=== PATIENT | female | born 1985 | race Hispanic/Latino ===

== ENCOUNTER 2018-03-09 16:04 | Emergency (ER) | payer SELFPAY ==
--- NOTE | 2018-03-09 17:35 | EDPHYS ---
Physician Documentation [facility] Name: Yamilet Bustos Age: 32 yrs Sex: Female : 1985 Arrival Date: 03/09/2018 Time: 16:06 Bed 20 Private MD: None, None ED Physician Kb Aguilera HPI: 03/09 17:37 This 32 yrs old Female presents to ER via Ambulatory with complaints of Blood snw Pressure Problem - LOW. 17:37 doing errands today and felt hot, weak, shaky. Took BP at a store and noted it to be snw much lower than she has ever had. Onset: The symptoms/episode began/occurred suddenly, today. Severity of symptoms: At their worst the symptoms were moderate in the emergency department the symptoms have resolved and did so while in waiting room. The patient has not experienced similar symptoms in the past. It is unknown whether or not the patient has recently seen a physician. 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 - Social history:: Smoking status: Patient/guardian denies using tobacco. - Ebola Screening: : Patient denies travel to an Ebola-affected area in the 21 days before illness onset. ROS: 17:32 Eyes: Negative for injury, pain, redness, and discharge, ENT: Negative for injury, snw pain, and discharge, Neck: Negative for injury, pain, and swelling. 17:32 Respiratory: Negative for shortness of breath, cough, wheezing, and pleuritic chest pain, Abdomen/GI: Negative for abdominal pain, nausea, vomiting, diarrhea, and constipation, Back: Negative for injury and pain, : Negative for injury, bleeding, discharge, and swelling, MS/Extremity: Negative for injury and deformity, Neuro: Negative for headache, weakness, numbness, tingling, and seizure. 17:32 Constitutional: Positive for fatigue, malaise. 17:32 Cardiovascular: Positive for low blood pressure. 17:32 Skin: Positive for diaphoresis, resolved. Exam: 17:32 Constitutional: This is a well developed, well nourished patient who is awake, alert, snw and in no acute distress. Head/Face: Normocephalic, atraumatic. Eyes: Pupils equal round and reactive to light, extra-ocular motions intact. Lids and lashes normal. Conjunctiva and sclera are non-icteric and not injected. Cornea within normal limits. Periorbital areas with no swelling, redness, or edema. ENT: Nares patent. No nasal discharge, no septal abnormalities noted. Tympanic membranes are normal and external auditory canals are clear. Oropharynx with no redness, swelling, or masses, exudates, or evidence of obstruction, uvula midline. Mucous membranes moist. Neck: Trachea midline, no thyromegaly or masses palpated, and no cervical lymphadenopathy. Supple, full range of motion without nuchal rigidity, or vertebral point tenderness. No Meningismus. Chest/axilla: Normal chest wall appearance and motion. Nontender with no deformity. No lesions are appreciated. Cardiovascular: Regular rate and rhythm with a normal S1 and S2. No gallops, murmurs, or rubs. Normal PMI, no JVD. No pulse deficits. Respiratory: Lungs have equal breath sounds bilaterally, clear to auscultation and percussion. No rales, rhonchi or wheezes noted. No increased work of breathing, no retractions or nasal flaring. Abdomen/GI: Soft, non-tender, with normal bowel sounds. No distension or tympany. No guarding or rebound. No evidence of tenderness throughout. Back: No spinal tenderness. No costovertebral tenderness. Full range of motion. Skin: Warm, dry with normal turgor. Normal color with no rashes, no lesions, and no evidence of cellulitis. MS/ Extremity: Pulses equal, no cyanosis. Neurovascular intact. Full, normal range of motion. Neuro: Awake and alert, GCS 15, oriented to person, place, time, and situation. Cranial nerves II-XII grossly intact. Motor strength 5/5 in all extremities. Sensory grossly intact. Cerebellar exam normal. Normal gait. Psych: Awake, alert, with orientation to person, place and time. Behavior, mood, and affect are within normal limits. Vital Signs: 16:17 BP 122 / 77 Sitting; Pulse 75; Resp 18; Temp 98.9; Pulse Ox 100% on R/A; Weight 56.7 kg aj1 (R); Height 5 ft. 5 in. (165.10 cm) (R); Pain 0/10; 16:20 BP 135 / 83 Standing; Pulse 80; aj1 17:14 BP 118 / 62; Pulse 58; Resp 15; Pulse Ox 100% on R/A; mh5 17:58 BP 111 / 62; Pulse 64; Resp 15; Temp 98.3; Pulse Ox 99% on R/A; Pain 0/10; ch 16:17 Body Mass Index 20.80 (56.70 kg, 165.10 cm) aj1 MDM: 17:23 Patient medically screened. snw 17:36 Data reviewed: vital signs, nurses notes. Data interpreted: Pulse oximetry: on room air snw is 100 %. Interpretation: normal. Counseling: I had a detailed discussion with the patient and/or guardian regarding: the historical points, exam findings, and any diagnostic results supporting the discharge/admit diagnosis, lab results, the need for outpatient follow up, to return to the emergency department if symptoms worsen or persist or if there are any questions or concerns that arise at home. Special discussion: Based on the history and exam findings, there is no indication for further emergent testing or inpatient evaluation. I discussed with the patient/guardian the need to see the primary care provider for further evaluation of the symptoms. ED course: pt on spironolactone for acne, no hx of hypertension. No fluid intake today as she was running errands. 03/09 17:38 Order name: Urine Dipstick--Ancillary (enter results); Complete Time: 17:41 bd 03/09 17:38 Order name: Urine --Ancillary (enter results); Complete Time: 17:41 bd Administered Medications: No medications were administered Disposition: 03/10 07:19 Co-signature as Attending Physician, Kb Aguilera MD I agree with the assessment and dennis plan of care. Disposition: 03/09/18 17:35 Discharged to Home. Impression: Adverse effect of antihypertensive/diuretic. - Condition is Stable. - Discharge Instructions: Dehydration, Adult, Rehydration, Adult. - Medication Reconciliation Form, Thank You Letter, Antibiotic Education, Prescription Opioid Use form. - Follow up: Private Physician; When: 1 - 2 days; Reason: Recheck today's complaints, Continuance of care, Re-evaluation by your physician. Follow up: Emergency Department; When: As needed; Reason: Worsening of condition. Signatures: Dispatcher [employer] Barbara Covarrubias, Beverley Graves RN, ch, RN RN ajKb Isaac MD MD cha Therrien, Shelly, CONCRETE STONE FABRICATING SUPERVISOR-C CONCRETE STONE FABRICATING SUPERVISOR-Csnw Corrections: (The following items were deleted from the chart) 03/09 18:00 17:35 03/09/2018 17:35 Discharged to Home. Impression: Adverse effect of ch antihypertensive/diuretic. Condition is Stable. Forms are Medication Reconciliation Form, Thank You Letter, Antibiotic Education, Prescription Opioid Use. Follow up: Private Physician; When: 1 - 2 days; Reason: Recheck today's complaints, Continuance of care, Re-evaluation by your physician. Follow up: Emergency Department; When: As needed; Reason: Worsening of condition. snw
--- NOTE | 2018-03-09 17:35 | ER ---
Nurse's Notes [facility] Name: Yamilet Bustos Age: 32 yrs Sex: Female : 1985 Arrival Date: 03/09/2018 Time: 16:06 Bed 20 Private MD: None, None Diagnosis: Adverse effect of antihypertensive/diuretic Presentation: 03/09 16:13 Presenting complaint: Patient states: She was running errands when all the sudden she aj1 felt really weak and tired so she stopped and checked her blood pressure in the local [employer] store and it was 89/66. Denies dizziness and chest pain. Reports shortness of breath. Breath sounds CTA. Transition of care: patient was not received from another setting of care. Onset of symptoms was March 09, 2018. Risk Assessment: Do you want to hurt yourself or someone else? Patient reports no desire to harm self or others. Initial Sepsis Screen: Does the patient meet any 2 criteria? No. Patient's initial sepsis screen is negative. Does the patient have a suspected source of infection? No. Patient's initial sepsis screen is negative. Care prior to arrival: None. 16:13 Method Of Arrival: Ambulatory aj1 16:13 Acuity: BRYCE 3 aj1 Triage Assessment: 16:17 General: Appears in no apparent distress. comfortable, Behavior is calm, cooperative, aj1 appropriate for age. Pain: Denies pain. Neuro: Level of Consciousness is awake, alert, obeys commands. Cardiovascular: Patient's skin is warm and dry. Respiratory: Reports shortness of breath Airway is patent Respiratory effort is even, unlabored, Respiratory pattern is regular, symmetrical, Breath sounds are clear bilaterally. the patient reports symptoms have resolved. Derm: Skin is pink, warm \T\ dry. normal. 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 - Social history:: Smoking status: Patient/guardian denies using tobacco. - Ebola Screening: : Patient denies travel to an Ebola-affected area in the 21 days before illness onset. Screenin:58 Abuse screen: Denies threats or abuse. Denies injuries from another. Nutritional ch screening: No deficits noted. Tuberculosis screening: No symptoms or risk factors identified. Fall Risk None identified. Assessment: 17:20 General: Appears in no apparent distress. comfortable, Behavior is calm, cooperative, ch appropriate for age. Pain: Denies pain. Neuro: No deficits noted. Cardiovascular: No deficits noted. Respiratory: No deficits noted. GI: No signs and/or symptoms were reported involving the gastrointestinal system. Derm: No signs and/or symptoms reported regarding the dermatologic system. 17:58 Reassessment: Patient appears in no apparent distress at this time. Patient and/or ch family updated on plan of care and expected duration. Pain level reassessed. Patient is alert, oriented x 3, equal unlabored respirations, skin warm/dry/pink. Patient denies pain at this time. Patient states feeling better. Patient states symptoms have improved. Vital Signs: 16:17 BP 122 / 77 Sitting; Pulse 75; Resp 18; Temp 98.9; Pulse Ox 100% on R/A; Weight 56.7 kg aj1 (R); Height 5 ft. 5 in. (165.10 cm) (R); Pain 0/10; 16:20 BP 135 / 83 Standing; Pulse 80; aj1 17:14 BP 118 / 62; Pulse 58; Resp 15; Pulse Ox 100% on R/A; mh5 17:58 BP 111 / 62; Pulse 64; Resp 15; Temp 98.3; Pulse Ox 99% on R/A; Pain 0/10; ch 16:17 Body Mass Index 20.80 (56.70 kg, 165.10 cm) aj1 ED Course: 16:06 Patient arrived in ED. sb2 16:06 None, None is Private Physician. sb2 16:17 Triage completed. aj1 17:12 Barbara Galeas, RN is Primary Nurse. ch 17:14 Patient has correct armband on for positive identification. Placed in gown. Bed in low mh5 position. Call light in reach. Warm blanket given. Pulse ox on. NIBP on. 17:21 Kathy Thompson FNP-C is PHCP. snw 17:21 Kb Aguilera MD is Attending Physician. snw 17:35 Patient has correct armband on for positive identification. Placed in gown. Bed in low mh5 position. Call light in reach. Warm blanket given. Pulse ox on. NIBP on. 17:35 EKG done. Urine collected: clean catch specimen, clear. 5 17:58 No apparent distress. Resting quietly. ch 17:58 No provider procedures requiring assistance completed. Patient did not have IV access ch during this emergency room visit. 17:59 Patient placed in an exam room, on a stretcher. Administered Medications: No medications were administered Outcome: 17:35 Discharge ordered by . snw 17:58 Discharged to home ambulatory, with family. 17:58 Condition: improved 17:58 Discharge instructions given to patient, family, Instructed on discharge instructions, follow up and referral plans. Demonstrated understanding of instructions, follow-up care. 18:00 Patient left the ED. Signatures: Barbara Galeas RN RN Beverley Galeano RN RN aj1 Kathy Thompson, INDUSTRY SEGMENT SPECIALIST-C INDUSTRY SEGMENT SPECIALIST-Carly Nolen 5 Beryl Falk sb2 Corrections: (The following items were deleted from the chart) 16:19 16:17 BP 122 / 77; Pulse 75bpm; Resp 18bpm; Pulse Ox 100% RA; Temp 98.9F; 56.7 kg aj1 Reported; Height 5 ft. 5 in. Reported; BMI: 20.8; Pain 0/10; aj1
[2018-03-09 17:39] LABS: Urine Blood 2+ (NEG); Urine Glucose NEGATIVE (NEG); Urine Protein NEGATIVE (NEG)
== END 2018-03-09 18:00 | disposition home or self-care (01) ==
LOC: ER 16:04
DX: I95.9 Hypotension, unspecified (principal); T50.2X5A Adverse effect of carbonic-anhydrase inhibitors, benzothiadiazides and other diuretics, initial encounter; Y92.9 Unspecified place or not applicable; Z88.1 Allergy status to other antibiotic agents
CPT/HCPCS: 81003; 81025; 99284

== ENCOUNTER 2018-12-29 19:47 | Emergency (ER) | payer SELFPAY ==
[2018-12-29] MEDS ORDERED: CYCLOBENZAPRINE 10 MG TAB ONE (21:04)
[2018-12-29] MEDS ORDERED: IBUPROFEN 400 MG TAB ONE (21:05)
[2018-12-29 21:07] LABS: Urine Blood 2+ (NEG); Urine Glucose NEGATIVE (NEG); Urine Protein NEGATIVE (NEG); Urine pH 5.5 (5.0-7.0)
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
--- NOTE | 2018-12-30 11:30 | RAD REPORT ---
EXAM DESCRIPTION: CT - Head Brain Wo Cont - 12/30/2018 4:25 am CLINICAL HISTORY: Trauma. COMPARISON: None. TECHNIQUE: CT scan of the brain and facial bones without IV contrast. This exam was performed accord ing to our departmental dose-optimization program, which includes automated exposure control, adjustm ent of the mA and/or kV according to patient size and/or use of iterative reconstruction technique. FINDINGS: BRAIN: The ventricles, cisterns, and sulci are age-appropriate. No evidence of acute infarction, intracrania l hemorrhage, extra-axial fluid collection, or midline shift. No depressed skull fracture. FACIAL BONES: No acute facial bone fracture is seen. No air-fluid levels are seen in the paranasal sinuses. The mas toid air cells are clear. No retrobulbar mass or hematoma is identified. IMPRESSION: 1. No acute intracranial hemorrhage. 2. No acute facial bone fracture. Electronically signed by: Andrea Loza MD 12/29/2018 9:34 PM CDT Due to temporary technical issues with the PACS/Fluency reporting system, reports are being signed by the in house radiologist as a courtesy to ensure prompt reporting. The interpreting radiologist is f ully responsible for the content of the report.
--- NOTE | 2018-12-30 11:33 | RAD REPORT ---
EXAM DESCRIPTION: CT - Facial Bones W/ Mpr - 12/30/2018 4:25 am CLINICAL HISTORY: Trauma. COMPARISON: None. TECHNIQUE: CT scan of the brain and facial bones without IV contrast. This exam was performed accord ing to our departmental dose-optimization program, which includes automated exposure control, adjustm ent of the mA and/or kV according to patient size and/or use of iterative reconstruction technique. FINDINGS: BRAIN: The ventricles, cisterns, and sulci are age-appropriate. No evidence of acute infarction, intracrania l hemorrhage, extra-axial fluid collection, or midline shift. No depressed skull fracture. FACIAL BONES: No acute facial bone fracture is seen. No air-fluid levels are seen in the paranasal sinuses. The mas toid air cells are clear. No retrobulbar mass or hematoma is identified. IMPRESSION: 1. No acute intracranial hemorrhage. 2. No acute facial bone fracture. Electronically signed by: Andrea Loza MD 12/29/2018 9:34 PM CDT Due to temporary technical issues with the PACS/Fluency reporting system, reports are being signed by the in house radiologist as a courtesy to ensure prompt reporting. The interpreting radiologist is f ully responsible for the content of the report.
== END 2018-12-29 22:40 | disposition home or self-care (01) ==
LOC: ER 19:47
DX: S00.83XA Contusion of other part of head, initial encounter (principal); V49.9XXA Car occupant (driver) (passenger) injured in unspecified traffic accident, initial encounter; Z88.1 Allergy status to other antibiotic agents
CPT/HCPCS: 70450; 70486; 76377; 81003; 81025; 99283

== ENCOUNTER 2020-06-18 18:05 | Emergency (ER) | payer SELFPAY ==
--- NOTE | 2020-06-18 20:40 | ER ---
Nurse's Notes [facility] Name: Yamilet Bustos Age: 35 yrs Sex: Female : 1985 Arrival Date: 06/18/2020 Time: 18:06 Bed 18 Private MD: Diagnosis: Cat-scratch disease Presentation: 06/18 18:32 Chief complaint: Patient states: My L groin is hurting since last week. I originally ca1 think it was a pulled muscle from working out, but , it started getting worse, swollen, and tender. I also have a little bit of a fever. Denies urinary symptoms. Coronavirus screen: Client denies travel out of the [place] in the last 14 days. fever, Client presents with at least one sign or symptom that may indicate coronavirus-19. Standard/surgical mask placed on the client. Provider contacted for isolation considerations. Ebola Screen: Patient negative for fever greater than or equal to 101.5 degrees Fahrenheit, and additional compatible Ebola Virus Disease symptoms Patient denies exposure to infectious person. Patient denies travel to an Ebola-affected area in the 21 days before illness onset. No symptoms or risks identified at this time. Initial Sepsis Screen: Does the patient meet any 2 criteria? No. Patient's initial sepsis screen is negative. Does the patient have a suspected source of infection? No. Patient's initial sepsis screen is negative. Risk Assessment: Do you want to hurt yourself or someone else? Patient reports no desire to harm self or others. Onset of symptoms was June 18, 2020. 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 - Social history:: Smoking status: Patient denies any tobacco usage or history of. Screenin:15 Abuse screen: Denies threats or abuse. Denies injuries from another. Nutritional ca1 screening: No deficits noted. Tuberculosis screening: No symptoms or risk factors identified. Fall Risk None identified. Assessment: 20:15 General: Appears in no apparent distress. comfortable, Behavior is calm, cooperative, ca1 appropriate for age. Pain: Complains of pain in left inguinal area and left femoral area Pain currently is 6 out of 10 on a pain scale. Pain began a week ago. Neuro: Level of Consciousness is awake, alert, obeys commands, Oriented to person, place, time, situation. GI: Abdomen is flat, non-distended, Bowel sounds present X 4 quads. Abd is soft and non tender X 4 quads. : No signs and/or symptoms were reported regarding the genitourinary system. Urine is clear, Denies burning with urination, urinary frequency, urgency. Derm: Skin is intact, is healthy with good turgor, Skin is pink, warm \T\ dry. Musculoskeletal: Circulation, motion, and sensation intact. Capillary refill < 3 seconds. 21:16 Reassessment: Patient appears in no apparent distress at this time. Patient is alert, ca1 oriented x 3, equal unlabored respirations, skin warm/dry/pink. Vital Signs: 18:32 BP 128 / 89; Pulse 77; Resp 16 S; Temp 97.9(TE); Pulse Ox 100% on R/A; Weight 58.97 kg ca1 (R); Height 5 ft. 5 in. (165.10 cm) (R); Pain 6/10; 20:15 BP 121 / 82; Pulse 71; Resp 16 S; Pulse Ox 100% on R/A; ca1 21:16 BP 118 / 78; Pulse 76; Resp 16 S; Pulse Ox 100% on R/A; ca1 18:32 Body Mass Index 21.63 (58.97 kg, 165.10 cm) ca1 ED Course: 18:06 Patient arrived in ED. as 18:35 Triage completed. ca1 18:36 Arm band placed on right wrist. ca1 19:14 Kathy Tai FNP-C is PHCP. snw 19:14 Vu Carty MD is Attending Physician. snw 20:15 Patient has correct armband on for positive identification. Bed in low position. Call ca1 light in reach. Side rails up X 1. Pulse ox on. NIBP on. 20:20 Kinjal Urban, ABEL is Primary Nurse. ca1 20:40 US Pelvis Complete In Process Unspecified. EDMS 20:51 No provider procedures requiring assistance completed. Patient did not have IV access ca1 during this emergency room visit. Administered Medications: 20:40 Drug: TORadol 30 mg Route: IM; Site: right gluteus; ca1 21:16 Follow up: Response: No adverse reaction; Pain is decreased ca1 20:41 Drug: Zithromax 500 mg Route: PO; ca1 21:16 Follow up: Response: No adverse reaction ca1 Outcome: 20:40 Discharge ordered by MD. lou 21:16 Discharged to home ambulatory. ca1 21:16 Condition: stable 21:16 Discharge instructions given to patient, Instructed on discharge instructions, follow up and referral plans. medication usage, Demonstrated understanding of instructions, follow-up care, medications, Prescriptions given X 2. 21:16 Patient left the ED. ca1 Signatures: Dispatcher [employer] EDMS Kathy Tai, DIRECTOR HARDWARE-C DIRECTOR HARDWARE-Anju Noeln Cheryl RN RN ca1
--- NOTE | 2020-06-18 20:40 | EDPHYS ---
Physician Documentation [facility] Name: Yamilet Bustos Age: 35 yrs Sex: Female : 1985 Arrival Date: 06/18/2020 Time: 18:06 Bed 18 Private MD: ED Physician Vu Carty HPI: 06/18 20:22 This 35 yrs old Female presents to ER via Ambulatory with complaints of Groin snw Pain. 20:22 Onset: The symptoms/episode began/occurred suddenly, 3 day(s) ago, and became snw persistent. Associated signs and symptoms: Pertinent positives: swelling, tenderness. Modifying factors: The patient symptoms are alleviated by Motrin. The patient has not experienced similar symptoms in the past. The patient has not recently seen a physician. 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 - Social history:: Smoking status: Patient denies any tobacco usage or history of. ROS: 20:21 Constitutional: Negative for fever, chills, and weight loss, Eyes: Negative for injury, snw pain, redness, and discharge, ENT: Negative for injury, pain, and discharge, Neck: Negative for injury, pain, and swelling, Cardiovascular: Negative for chest pain, palpitations, and edema, Respiratory: Negative for shortness of breath, cough, wheezing, and pleuritic chest pain, Abdomen/GI: Negative for abdominal pain, nausea, vomiting, diarrhea, and constipation, Back: Negative for injury and pain, MS/Extremity: Negative for injury and deformity, Skin: Negative for injury, rash, and discoloration, Neuro: Negative for headache, weakness, numbness, tingling, and seizure, Psych: Negative for depression, anxiety, suicide ideation, homicidal ideation, and hallucinations. 20:21 : Positive for pelvic pain, of the left femoral area and left inguinal area. Exam: 20:19 Constitutional: This is a well developed, well nourished patient who is awake, alert, snw and in no acute distress. Head/Face: Normocephalic, atraumatic. Eyes: Pupils equal round and reactive to light, extra-ocular motions intact. Lids and lashes normal. Conjunctiva and sclera are non-icteric and not injected. Cornea within normal limits. Periorbital areas with no swelling, redness, or edema. ENT: Nares patent. No nasal discharge, no septal abnormalities noted. Tympanic membranes are normal and external auditory canals are clear. Oropharynx with no redness, swelling, or masses, exudates, or evidence of obstruction, uvula midline. Mucous membranes moist. Neck: Trachea midline, no thyromegaly or masses palpated, and no cervical lymphadenopathy. Supple, full range of motion without nuchal rigidity, or vertebral point tenderness. No Meningismus. Chest/axilla: Normal chest wall appearance and motion. Nontender with no deformity. No lesions are appreciated. Cardiovascular: Regular rate and rhythm with a normal S1 and S2. No gallops, murmurs, or rubs. Normal PMI, no JVD. No pulse deficits. Respiratory: Lungs have equal breath sounds bilaterally, clear to auscultation and percussion. No rales, rhonchi or wheezes noted. No increased work of breathing, no retractions or nasal flaring. Abdomen/GI: Soft, non-tender, with normal bowel sounds. No distension or tympany. No guarding or rebound. No evidence of tenderness throughout. Back: No spinal tenderness. No costovertebral tenderness. Full range of motion. Pelvic Exam: Normal external genitalia. Left groin tender along iliopsoas but pt has no difficulty with hip flexion. Tender to palpation from left mid abdomen down to left central thigh Skin: Warm, dry with normal turgor. Normal color with no rashes, no lesions, and no evidence of cellulitis. MS/ Extremity: Pulses equal, no cyanosis. Neurovascular intact. Full, normal range of motion. Neuro: Awake and alert, GCS 15, oriented to person, place, time, and situation. Cranial nerves II-XII grossly intact. Motor strength 5/5 in all extremities. Sensory grossly intact. Cerebellar exam normal. Normal gait. Psych: Awake, alert, with orientation to person, place and time. Behavior, mood, and affect are within normal limits. Vital Signs: 18:32 BP 128 / 89; Pulse 77; Resp 16 S; Temp 97.9(TE); Pulse Ox 100% on R/A; Weight 58.97 kg ca1 (R); Height 5 ft. 5 in. (165.10 cm) (R); Pain 6/10; 20:15 BP 121 / 82; Pulse 71; Resp 16 S; Pulse Ox 100% on R/A; ca1 21:16 BP 118 / 78; Pulse 76; Resp 16 S; Pulse Ox 100% on R/A; ca1 18:32 Body Mass Index 21.63 (58.97 kg, 165.10 cm) ca1 MDM: 20:19 Patient medically screened. snw 20:42 Data reviewed: vital signs, nurses notes. Data interpreted: Pulse oximetry: on room air snw is 100 %. Interpretation: normal. Counseling: I had a detailed discussion with the patient and/or guardian regarding: the historical points, exam findings, and any diagnostic results supporting the discharge/admit diagnosis, the presence of at least one elevated blood pressure reading (>120/80) during this emergency department visit, the need for outpatient follow up, for definitive care, to return to the emergency department if symptoms worsen or persist or if there are any questions or concerns that arise at home. Special discussion: Based on the history and exam findings, there is no indication for further emergent testing or inpatient evaluation. I discussed with the patient/guardian the need to see the primary care provider for further evaluation of the symptoms. 06/18 19:25 Order name: US Merrill Complete snw Administered Medications: 20:40 Drug: TORadol 30 mg Route: IM; Site: right gluteus; ca1 21:16 Follow up: Response: No adverse reaction; Pain is decreased ca1 20:41 Drug: Zithromax 500 mg Route: PO; ca1 21:16 Follow up: Response: No adverse reaction ca1 Disposition: 06/19 01:10 Co-signature as Attending Physician, Vu Carty MD. pkl Disposition: 06/18/20 20:40 Discharged to Home. Impression: Cat-scratch disease. - Condition is Stable. - Discharge Instructions: Cat-Scratch Disease, Rehydration, Adult. - Prescriptions for Diclofenac Sodium 75 mg Oral Tablet Sustained Release - take 1 tablet by ORAL route 2 times per day; 30 tablet. Zithromax 500 mg Oral Tablet - take 1 tablet by ORAL route once daily for 5 days; 5 tablet. - Medication Reconciliation Form, Thank You Letter, Antibiotic Education, Prescription Opioid Use, Work release form form. - Follow up: Emergency Department; When: As needed; Reason: Worsening of condition. Follow up: Private Physician; When: 5 - 6 days; Reason: Recheck today's complaints, Continuance of care, Re-evaluation by your physician. Signatures: Dispatcher [employer] EDMS Vu Carty MD MD pkl Waters, Shelly, HARSHAD-C HARSHAD-Kinjal Gee RN RN ca1 Corrections: (The following items were deleted from the chart) 06/18 21:16 20:40 06/18/2020 20:40 Discharged to Home. Impression: Cat-scratch disease. Condition ca1 is Stable. Forms are Medication Reconciliation Form, Thank You Letter, Antibiotic Education, Prescription Opioid Use. Follow up: Emergency Department; When: As needed; Reason: Worsening of condition. Follow up: Private Physician; When: 5 - 6 days; Reason: Recheck today's complaints, Continuance of care, Re-evaluation by your physician. snw
[2020-06-18] MEDS ORDERED: AZITHROMYCIN 250 MG TAB ONE (20:59)
[2020-06-18] MEDS ORDERED: KETOROLAC 30 MG/ML INJ ONE (20:59)
[2020-06-19 03:04] VITALS: TEMP 97.9; O2SAT 100
[2020-06-19 03:08] VITALS: BP 118/78
--- NOTE | 2020-06-19 07:07 | RAD REPORT ---
EXAM DESCRIPTION: US - Pelvis Complete - 06/18/2020 8:39 pm CLINICAL HISTORY: left groin pain COMPARISON: No comparisons TECHNIQUE: Transabdominal pelvic sonography was performed. FINDINGS: Transabdominal sonography the pelvis and left inguinal region performed. Uterus is normal size and shows no endometrial or myometrial mass. Endometrial stripe is approximately 6 mm in thickne ss. Both ovaries are identified and normal size. Normal for age follicles are seen. Blood flow was demons trated in the ovarian stroma. No suspicious ovarian or adnexal finding. Sonographic evaluation of the left groin did not identify a hernia. Patient has multiple lymph nodes in the groin largest at 3.5 cm in length. Lymph nodes are not clearly pathologic. These lymph nodes a re typically reactive but need monitoring based on size. Preliminary findings were provided at the time of the study. IMPRESSION: Uterus, ovaries and adnexa show no suspicious findings. Multiple left groin lymph nodes up to 3.5 cm in length. These are likely reactive but needs ongoing m onitoring to assure resolution. No left groin hernia identified.
== END 2020-06-18 21:16 | disposition home or self-care (01) ==
LOC: ER 18:05
DX: A28.1 Cat-scratch disease (principal); Z88.1 Allergy status to other antibiotic agents
CPT/HCPCS: 76856; 96372; 99284

== ENCOUNTER 2020-07-21 21:08 | Emergency (ER) | payer SELFPAY ==
--- NOTE | 2020-07-21 22:58 | EDPHYS ---
Physician Documentation [facility] Name: Yamilet Bustos Age: 35 yrs Sex: Female : 1985 Arrival Date: 07/21/2020 Time: 21:19 Bed 5 Private MD: ED Physician Deyvi Desir HPI: 07/21 22:26 This 35 yrs old Female presents to ER via Ambulatory with complaints of Wound kb Check. 22:26 Pt reports she had a cat scratch to left groin a month ago, was seen here and given kb antibiotics. States she has had a lump in that spot since then so she came back to get it looked at. States the lump doesn't cause pain or any other symptoms unless she pushes on it. States pushing on it causes a bruise. 22:36 the patient presents with a swollen area of the left femoral area. Description: kb swollen. Onset: The symptoms/episode began/occurred 1 month(s) ago. Possible cause(s): cat scratch. Associated signs and symptoms: Pertinent positives: swelling, Pertinent negatives: discharge, drainage, erythema, foreign body sensation, fever, headache, nausea, shortness of breath, vomiting. Modifying factors: the symptoms are alleviated by nothing, the symptoms are aggravated by pressure. Severity of symptoms: At their worst the symptoms were mild, in the emergency department the symptoms are unchanged. The patient has not experienced similar symptoms in the past. The patient has been recently seen at the [facility] Emergency Department, last month. Historical: - Allergies: 21:44 Bactrim; rr5 - Home Meds: 21:44 spironolactone 50 mg Oral tab 1 tab once daily for ACNE [Active]; diclofenac oral oral rr5 [Active]; - PMHx: 21:44 ACNE; rr5 - PSHx: 21:44 None; rr5 - Immunization history:: Adult Immunizations up to date. - Social history:: Smoking status: unknown Patient/guardian denies using alcohol, street drugs. ROS: 22:35 Constitutional: Negative for fever, chills, and weight loss, Cardiovascular: Negative kb for chest pain, palpitations, and edema, Respiratory: Negative for shortness of breath, cough, wheezing, and pleuritic chest pain, Abdomen/GI: Negative for abdominal pain, nausea, vomiting, diarrhea, and constipation, MS/Extremity: Negative for injury and deformity, Neuro: Negative for headache, weakness, numbness, tingling, and seizure. 22:35 Skin: Positive for "lump" to left groin area. Exam: 22:35 Constitutional: This is a well developed, well nourished patient who is awake, alert, kb and in no acute distress. Head/Face: Normocephalic, atraumatic. Chest/axilla: Normal chest wall appearance and motion. Nontender with no deformity. No lesions are appreciated. Cardiovascular: Regular rate and rhythm with a normal S1 and S2. No gallops, murmurs, or rubs. Normal PMI, no JVD. No pulse deficits. Respiratory: Lungs have equal breath sounds bilaterally, clear to auscultation and percussion. No rales, rhonchi or wheezes noted. No increased work of breathing, no retractions or nasal flaring. Abdomen/GI: Soft, non-tender, with normal bowel sounds. No distension or tympany. No guarding or rebound. No evidence of tenderness throughout. MS/ Extremity: Pulses equal, no cyanosis. Neurovascular intact. Full, normal range of motion. Neuro: Awake and alert, GCS 15, oriented to person, place, time, and situation. Cranial nerves II-XII grossly intact. Motor strength 5/5 in all extremities. Sensory grossly intact. Cerebellar exam normal. Normal gait. 22:35 Skin: walnut sized mass to left groin area, no redness, fluctuance, drainage, warmth, tenderness. Vital Signs: 21:38 BP 140 / 96; Pulse 91; Resp 16; Temp 98.; Pulse Ox 100% ; Weight 58.97 kg; Height 5 ft. rr5 5 in. (165.10 cm); Pain 4/10; 21:38 Body Mass Index 21.63 (58.97 kg, 165.10 cm) rr5 MDM: 21:50 Patient medically screened. kb 22:35 Data reviewed: vital signs, nurses notes. Data interpreted: Pulse oximetry: on room air kb is 100 %. Interpretation: normal. Counseling: I had a detailed discussion with the patient and/or guardian regarding: the historical points, exam findings, and any diagnostic results supporting the discharge/admit diagnosis, radiology results, the need for outpatient follow up, a family practitioner, to return to the emergency department if symptoms worsen or persist or if there are any questions or concerns that arise at home. 07/21 21:46 Order name: US Porfirio ellis Administered Medications: No medications were administered Disposition: 07/22 05:29 Co-signature as Attending Physician, Deyvi Desir MD. [email or web address] Disposition: 07/21/20 22:57 Discharged to Home. Impression: Hematoma. - Condition is Stable. - Discharge Instructions: Hematoma, [id number]. - Medication Reconciliation Form, Thank You Letter, Antibiotic Education, Prescription Opioid Use form. - Follow up: Emergency Department; When: As needed; Reason: Worsening of condition. Follow up: Private Physician; When: 2 - 3 days; Reason: Recheck today's complaints, Continuance of care, Re-evaluation by your physician. Signatures: Dispatcher [employer] EDMA Samantha Dias, BURTC Jaclyn Amaro RN RN lp1 Brennon Nava RN RN rr5 Deyvi Desir MD MD 7 Corrections: (The following items were deleted from the chart) 07/21 23:20 22:57 07/21/2020 22:57 Discharged to Home. Impression: Hematoma. Condition is Stable. lp1 Forms are Medication Reconciliation Form, Thank You Letter, Antibiotic Education, Prescription Opioid Use. Follow up: Emergency Department; When: As needed; Reason: Worsening of condition. Follow up: Private Physician; When: 2 - 3 days; Reason: Recheck today's complaints, Continuance of care, Re-evaluation by your physician. kb
--- NOTE | 2020-07-21 22:58 | ER ---
Nurse's Notes [facility] Name: Yamilet Bustos Age: 35 yrs Sex: Female : 1985 Arrival Date: 07/21/2020 Time: 21:19 Bed 5 Private MD: Diagnosis: Hematoma Presentation: 07/21 21:38 Chief complaint: Patient states: lump on left groin area when i press it hurts and rr5 develops bruise. it started as a cat scratch a month a go came here prescribed antibiotic and anti inflammatory medication. no fever. Coronavirus screen: Client denies travel out of the [place] in the last 14 days. At this time, the client does not indicate any symptoms associated with coronavirus-19. Ebola Screen: Patient negative for fever greater than or equal to 101.5 degrees Fahrenheit, and additional compatible Ebola Virus Disease symptoms Patient denies exposure to infectious person. Patient denies travel to an Ebola-affected area in the 21 days before illness onset. Initial Sepsis Screen: Does the patient meet any 2 criteria? No. Patient's initial sepsis screen is negative. Does the patient have a suspected source of infection? No. Patient's initial sepsis screen is negative. Risk Assessment: Do you want to hurt yourself or someone else? Patient reports no desire to harm self or others. Onset of symptoms was July 21, 2020. 21:38 Method Of Arrival: Ambulatory rr5 21:38 Acuity: BRYCE 4 rr5 Historical: - Allergies: 21:44 Bactrim; rr5 - Home Meds: 21:44 spironolactone 50 mg Oral tab 1 tab once daily for ACNE [Active]; diclofenac oral oral rr5 [Active]; - PMHx: 21:44 ACNE; rr5 - PSHx: 21:44 None; rr5 - Immunization history:: Adult Immunizations up to date. - Social history:: Smoking status: unknown Patient/guardian denies using alcohol, street drugs. Screenin:02 Abuse screen: Denies threats or abuse. Nutritional screening: No deficits noted. ea Tuberculosis screening: No symptoms or risk factors identified. Fall Risk None identified. Assessment: 21:54 Reassessment: refused to change hospital gown. rr5 22:00 General: Appears in no apparent distress. Behavior is appropriate for age. Pain: ea Complains of pain in left upper thigh. Neuro: Level of Consciousness is awake, alert, obeys commands, Oriented to person, place, time. Respiratory: Airway is patent Respiratory effort is even, unlabored, Respiratory pattern is regular, symmetrical. Derm: Skin is pink, warm \T\ dry. slightly red, swollen area noted to left upper thigh. Vital Signs: 21:38 BP 140 / 96; Pulse 91; Resp 16; Temp 98.; Pulse Ox 100% ; Weight 58.97 kg; Height 5 ft. rr5 5 in. (165.10 cm); Pain 4/10; 21:38 Body Mass Index 21.63 (58.97 kg, 165.10 cm) rr5 ED Course: 21:19 Patient arrived in ED. am2 21:33 [facility]C [facility] kb 21:33 Deyvi Desir MD is Attending Physician. kb 21:44 Arm band placed on right wrist. rr5 21:54 Jacqueline Davidson, RN is Primary Nurse. ea 21:59 Triage completed. rr5 22:02 Patient has correct armband on for positive identification. Bed in low position. Call ea light in reach. Side rails up X2. 22:54 US Extrmty Nonvasular Limited In Process Unspecified. EDMS 23:19 No provider procedures requiring assistance completed. Patient did not have IV access lp1 during this emergency room visit. Administered Medications: No medications were administered Outcome: 22:57 Discharge ordered by MD. kb 23:19 Discharged to home ambulatory, with family. lp1 23:19 Condition: good 23:19 Discharge instructions given to patient, family, Instructed on discharge instructions, follow up and referral plans. Demonstrated understanding of instructions, follow-up care. 23:20 Patient left the ED. lp1 Signatures: Dispatcher [employer] EDMS Samantha Dias FNP-C FNP-Ckb Pena, Laura RN RN lp1 Kelli Mike am2 Jacqueline Davidson RN RN ea Roque, Raymond RN RN rr5 Corrections: (The following items were deleted from the chart) 22:01 22:00 Derm: Skin is pink, warm \T\ dry. ea carlos a
[2020-07-21 23:24] VITALS: BP 140/96; TEMP 98; O2SAT 100
--- NOTE | 2020-07-22 08:09 | RAD REPORT ---
EXAM DESCRIPTION: US - Extremity Nonvascular Limited - 07/21/2020 10:54 pm CLINICAL HISTORY: evaluate lump in left groin Preliminary findings provided at the time of the study. COMPARISON: No comparisons FINDINGS: In the left groin area concern, sonographic evaluation demonstrates a 2.4 centimeter oval heterogeneous, predominantly hypoechoic mass. Doppler evaluation could not confirm internal blood vale w. There was some minimal blood flow along the periphery of the mass. An adjacent 2 centimeter oval m ass shows characteristics more typical for a lymph node. The larger more hypoechoic mass does not tito w typical benign lymph node characteristics. Hematoma is possible. Infectious or inflammatory lymph n ode is possible. A more aggressive neoplastic lymph node cannot be excluded and continued follow-up i s needed to monitor for resolution. IMPRESSION: A 2.4 centimeter left groin hypoechoic mass is suspected to be hematoma. However, no trauma history was delineated. Benign infectious or neoplastic lymph node remain in the d ifferential considerations. Repeat imaging recommended to assure resolution.
== END 2020-07-21 23:20 | disposition home or self-care (01) ==
LOC: ER 21:08
DX: S30.1XXA Contusion of abdominal wall, initial encounter (principal); W55.03XA Scratched by cat, initial encounter; Y93.9 Activity, unspecified; Y92.9 Unspecified place or not applicable; Z88.1 Allergy status to other antibiotic agents
CPT/HCPCS: 76882; 99283

== ENCOUNTER 2023-04-14 11:12 | Emergency (ER) | payer SELFPAY ==
--- OUTSIDE RECORDS SUMMARY | 2023-04-14 11:16 | XMS REPORT | Continuity of Care Document ---
:1985 Author Organization Formerly [facility] t Address [address] [place] [address] Care Team Providers Name Role Phone Pcp, Patient Does Not Have A Primary Care Physician [id number] Alex Dhillon Attending Clinician Unavailable ADONIS FOOTE Attending Clinician Unavailable Adonis Foote DO Attending Clinician Francis Attending Clinician Unavailable Tamara Lopez Attending Clinician Tamara JONES Attending Clinician Unavailable Francis Admitting Clinician Unavailable Problems Condition Condition Condition Status Onset Resolution Last Treating Co mments Source Name Details Category Date Date Treatment Clinician Date No known No known Disease Unive rs active active ity of problems problems [facility] Allergies, Adverse Reactions, Alerts Allergy Allergy Status Severity Reaction(s) Onset Inactive Treating Comm ents Source Name Type Date Date Clinician SULFAMET DRUG Active Unknown-Cmnt Un cecilio HOXAZOLE - ity of -TRIMETH 00:00: [place] OPRIM 00 Medical Branch Sulfamet Propensi Active Unknown - Uni vers hoxazole ty to See comments 10-16 it y of -Trimeth adverse 00:00: [place] oprim reaction 00 Medical s [place] NO KNOWN Drug Active Univers ALLERGIE Class ity of S [facility] Social History Social Habit Start Date Stop Date Quantity Comments Source Exposure to 2022-10-06 2022-10-16 Not sure [facility] SARS-CoV-2 (event) 00:00:00 15:30:00 Medica l Branch Sex Assigned At [birth year] [facility] [place] 00:00:00 00:00:00 Medical Branch Smoking Status Start Date Stop Date Source Tobacco smoking consumption [facility] unknown Branch Medications Ordered Filled Start Stop Current Ordering Indication Dosage Frequency Signature Comments Components Source Medication Medication Date Date Medication? Clinician (SIG) Name Name methocarbam No 500mg 500 mg, U nivers oL 02-10 Oral, ity of (ROBAXIN) 05:45: 05:00 ONCE, 1 [place] tablet 500 [place] :00 dose, On Medic al mg Mon Branch 02/10/22 at 0045, Routine ibuprofen No 600mg 600 mg, Uni vers (IBU) 02-10 Oral, ity of tablet 600 04:45: 05:00 ONCE, 1 Jose Martin as mg 00 :00 dose, On Medical [place] 02/09/22 at 2345, CECIL methocarbam Yes [id number] 500mg Take 1 Univers oL 500 mg 7-18 tablet by ity o f tablet 00:00: mouth 4 [place] 00 (four) Medical times Branch daily. ibuprofen Yes [id number] 600mg Take 1 U nivers 600 mg 7-18 tablet by ity of tablet 00:00: mouth [place] 00 every 6 Medical (six) Branch hours as needed for Pain (scale 4-6). No known No No known Unive rs medications -17 medication it y of 23:39: s [place] [id number] Medical [place] Vital Signs Vital Name Observation Time Observation Value Comments Source Systolic blood 2022-10-16 20:31:00 146 mm[Hg] Univer sity of pressure [facility] Diastolic blood 2022-10-16 20:31:00 80 mm[Hg] Unive rsity of [facility] Heart rate 2022-10-16 20:31:00 94 /min [facility] Body temperature 2022-10-16 20:31:00 37.22 Genna [facility] Respiratory rate 2022-10-16 20:31:00 16 /min [facility] Body height 2022-10-16 20:31:00 165.1 cm [facility] Body weight 2022-10-16 20:31:00 58.968 kg [facility] [place] [facility] BMI 2022-10-16 20:31:00 21.63 kg/m2 Universi ty [facility] Medical Branch Oxygen saturation in 2022-10-16 20:31:00 100 /min University of Arterial blood by [facility] Pulse oximetry Branch Systolic blood 2022-02-10 04:28:55 124 mm[Hg] Univer sity of pressure [facility] Diastolic blood 2022-02-10 04:28:55 94 mm[Hg] Unive rsity of pressure [facility] Heart rate 2022-02-10 04:28:55 72 /min [facility] [place] [facility] [place] Body temperature 2022-02-10 04:28:55 36.61 [facility] 2022-02-10 04:28:55 18 /min [facility] Oxygen saturation in 2022-02-10 04:28:55 99 /min University of Arterial blood by [facility] Pulse oximetry Branch Body height 2022-02-10 04:26:00 165.1 cm [facility] [place] [facility] Body weight 2022-02-10 04:26:00 58.968 kg [facility] [place] [facility] BMI 2022-02-10 04:26:00 21.63 kg/m2 [facility] Medical Branch Procedures Procedure Date / Time Performed Performing Clinician [facility] CONSENT/REFUSAL FOR 2022-10-16 20:27:48 Doctor Unassigned, No Un [facility] DIAGNOSIS AND [facility] Medical Branch TREATMENT NOTICE OF PRIVACY 2022-02-10 04:12:02 Doctor Unassigned, No Univ [facility] PRACTICES Name Medical Branch Encounters Start End Encounter Admission Attending Care Care Encounter Source Date/Time Date/Time Type Type Clinicians Facility Department ID 2022-09-25 Out[facility] [id number] Common 13:39:00 Alex [address] [facility] 2021-08-21 Outpatient Dhillon, STLMLC [facility] [id number] Common 12:20:42 Alex 16946 [facility] 2021-08-21 Outpatient Dhillon, STLMLC [facility] [id number] Common 12:18:57 Alex 66873 [facility] 2021-08-21 Outpatient STLMLC ST[facility] [id number] Common 12:18:35 [id number] [facility] 2022-10-16 2022-10-16 [facility] [id number] Univers 15:33:00 16:18:00 ADONIS kyle [facility] 2022-10-16 2022-10-16 Emergency Singer [facility] [id number] Univers 15:33:00 16:18:00 Adonis COMBS [id number] i ty of [place] [id number] [facility] [id number] [address] 2022-08-05 2022-08-05 Outpatient FOG_Munshi_ AOSM AOSM [id number] [place] 00:00:00 00:00:00 Angela [id number] [facility] 2022-02-09 2022-02-10 Emergency Tamara Jones [facility] [id number] Univers 23:57:00 00:42:00 Dinah COMBS [id number] i ty of [place] [id number] [facility] [id number] [address] 2022-02-09 2022-02-10 Emergency X Tamara JONES [facility] ERT [id number] Univers 23:57:00 00:42:00 [facility] Results This patient has no known results.
[2023-04-14 11:51] LABS: Absolute Lymphocytes (CBC) 1.6 K/uL (0.7-4.9); Hematocrit 37.1 % (36.0-45.0); Lymphocytes % 21.2 % (15.3-44.8); MCV 93.3 fL (80-100); MPV 6.5 fL (7.6-11.3); Platelets 470 thou/uL (152-406); RBC Red Blood Cell Count 3.98 M/uL (3.86-4.86)
[2023-04-14 12:09] LABS: Potassium 3.9 mEq/L (3.5-5.1)
--- NOTE | 2023-04-14 12:45 | EDPHYS ---
Physician Documentation [facility] Name: Yamilet Bustos Age: 37 yrs Sex: Female : 1985 Arrival Date: 04/14/2023 Time: 11:12 Bed DIS3 Private MD: ED Physician Marc Rowland HPI: 04/14 11:31 This 37 yrs old Female presents to ER via Unassigned with complaints of ms3 Numbness Of Hand. 11:31 37-year-old female with no past medical history presents for left hand paresthesias. ms3 Patient denies pain at this time. Patient states is been ongoing for 1 week. Patient denies fevers, chills, chest pain, nausea, vomiting. 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 - Social history:: Smoking status: Patient denies any tobacco usage or history of. ROS: 11:31 Constitutional: Negative for fever, and chills. Neck: Negative for injury, pain, and ms3 swelling, Cardiovascular: Negative for chest pain, and palpitations. Respiratory: Negative for shortness of breath, cough, wheezing, and pleuritic chest pain, Abdomen/GI: Negative for abdominal pain, nausea, vomiting, diarrhea, and constipation, 11:31 MS/Extremity: Negative for injury and deformity, Skin: Negative for injury, rash, and discoloration, 11:31 Neuro: Positive for Paresthesias of left hand, Exam: 11:31 Constitutional: This is a well developed, well nourished patient who is awake, alert, ms3 and in no acute distress. Head/Face: Normocephalic, atraumatic. Neck: Trachea midline, no cervical lymphadenopathy. Supple, full range of motion without nuchal rigidity, or vertebral point tenderness. No Meningismus. Chest/axilla: Normal chest wall appearance and motion. Nontender with no deformity. Cardiovascular: Regular rate and rhythm with a normal S1 and S2. No gallops, murmurs, or rubs. Normal PMI, no JVD. No pulse deficits. Respiratory: Lungs have equal breath sounds bilaterally, clear to auscultation and percussion. No rales, rhonchi or wheezes noted. No increased work of breathing, no retractions or nasal flaring. Abdomen/GI: Soft, non-tender, with normal bowel sounds. No distension or tympany. No guarding or rebound. No evidence of tenderness throughout. Skin: Warm, dry with normal turgor. Normal color with no rashes, no lesions, and no evidence of cellulitis. MS/ Extremity: Pulses equal, no cyanosis. Neurovascular intact. Full, normal range of motion. Neuro: Awake and alert, GCS 15, oriented to person, place, time, and situation. Cranial nerves II-XII grossly intact. Motor strength 5/5 in all extremities. Sensory grossly intact. Cerebellar exam normal. Normal gait. Vital Signs: 11:58 BP 150 / 96; Pulse 96; Resp 20; Temp 99.5; Pulse Ox 100% ; Weight 61.23 kg; Height 5 kb3 ft. 5 in. ; Pain 0/10; 11:58 Body Mass Index 22.46 (61.23 kg, 165.1 cm) kb3 11:58 Pain Scale: Adult kb3 MDM: 11:31 Differential diagnosis: Peripheral neuropathy versus electrolyte abnormality. ms3 12:10 Patient medically screened. ms3 12:44 Data reviewed: vital signs, nurses notes, and as a result, I will discharge patient. ms3 Care significantly affected by the following Social Determinants of Health: Poor access to healthcare and/or lack of insurance. Counseling: I had a detailed discussion with the patient and/or guardian regarding the historical points, exam findings, and any diagnostic results supporting the discharge/admit diagnosis, lab results, the need for outpatient follow up, to return to the emergency department if symptoms worsen or persist or if there are any questions or concerns that arise at home. Special discussion: I discussed with the patient/guardian in detail that at this point there is no indication for admission to the hospital. It is understood, however, that if the symptoms persist or worsen the patient needs to return immediately for re-evaluation. ED course: Discussed labs with patient. Patient to follow-up with primary care physician in 2 to 3 days. Patient understands and agrees with plan. All questions were answered. Return precautions discussed include worsening symptoms, or any other concerns. 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 04/14 11:31 Order name: CBC with Diff; Complete Time: 12:10 ms3 04/14 11:31 Order name: BMP; Complete Time: 12:10 ms3 04/14 12:45 Order name: Wrist Splint; Complete Time: 13:06 ms3 Administered Medications: No medications were administered Disposition Summary: 04/14/23 12:44 Discharge Ordered Notes: Location: Home ms3 Condition: Stable ms3 Diagnosis - Peripheral Neuropathy ms3 Followup: ms3 - With: Alex Dhillon DO - When: 2 - 3 days - Reason: Recheck today's complaints Discharge Instructions: - Discharge Summary Sheet ms3 - Peripheral Neuropathy ms3 Forms: - Medication Reconciliation Form ms3 - Thank You Letter ms3 - Antibiotic Education ms3 - Prescription Opioid Use ms3 - Patient Portal Instructions ms3 - Leadership Thank You Letter ms3 Signatures: Dispatcher [employer] EDMS Marc Rowland DO DO ms3 Idania Mason, RN RN kb3 Corrections: (The following items were deleted from the chart) 12:03 12:01 Home Meds: diclofenac Oral; kb3 kb3 12:03 12:01 Home Meds: spironolactone 50 mg Oral tab 1 tab once daily for ACNE; kb3 kb3
--- NOTE | 2023-04-14 12:45 | ER ---
Nurse's Notes [facility] Name: Yamilet Bustos Age: 37 yrs Sex: Female : 1985 Arrival Date: 04/14/2023 Time: 11:12 Bed DIS3 Private MD: Diagnosis: Peripheral Neuropathy Presentation: 04/14 11:58 Chief complaint: Patient states: Intermittent left arm/hand tingling x1 week. No other kb3 symptoms. Coronavirus screen: Vaccine status: Patient reports being unvaccinated. Client denies travel out of the [place] in the last 14 days. Ebola Screen: Patient negative for fever greater than or equal to 101.5 degrees Fahrenheit, and additional compatible Ebola Virus Disease symptoms Patient denies exposure to infectious person. Patient denies travel to an Ebola-affected area in the 21 days before illness onset. Initial Sepsis Screen: Does the patient meet any 2 criteria? No. Patient's initial sepsis screen is negative. Does the patient have a suspected source of infection? No. Patient's initial sepsis screen is negative. Risk Assessment: Do you want to hurt yourself or someone else? Patient reports no desire to harm self or others. Onset of symptoms is unknown. 11:58 Method Of Arrival: Ambulatory 3 11:58 Acuity: BRYCE 3 kb3 Triage Assessment: 12:01 General: Appears in no apparent distress. Behavior is calm, cooperative. Pain: Denies kb3 pain. Musculoskeletal: Reports numbness in left hand. 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 - Social history:: Smoking status: Patient denies any tobacco usage or history of. Screenin:[address] [facility] ED Fall Risk Assessment (Adult) History of falling in the last 3 months, jh5 including since admission No falls in past 3 months (0 pts). Abuse screen: Denies threats or abuse. Denies injuries from another. Nutritional screening: No deficits noted. Tuberculosis screening: No symptoms or risk factors identified. Vital Signs: 11:58 BP 150 / 96; Pulse 96; Resp 20; Temp 99.5; Pulse Ox 100% ; Weight 61.23 kg; Height 5 kb3 ft. 5 in. ; Pain 0/10; 11:58 Body Mass Index 22.46 (61.23 kg, 165.1 cm) kb3 11:58 Pain Scale: Adult kb3 ED Course: 11:14 Patient arrived in ED. rg4 11:14 Marc Rowland DO is Attending Physician. ms3 11:36 Initial lab(s) drawn, by me, sent to lab. Inserted saline lock: 20 gauge in right kj1 antecubital area, using aseptic technique. Blood collected. 12:01 Triage completed. kb3 12:01 Arm band placed on left wrist. kb3 12:43 Alex Dhillon DO is Referral Physician. ms3 13:07 No provider procedures requiring assistance completed. IV discontinued, intact, jh5 bleeding controlled, No redness/swelling at site. Pressure dressing applied. 13:07 Patient has correct armband on for positive identification. Provided Education on: 5 splint. 13:16 wrist. jh5 Administered Medications: No medications were administered Medication: 13:08 VIS not applicable for this client. jh5 Outcome: 12:44 Discharge ordered by MD. ms3 13:07 Discharged to home ambulatory, jh5 13:07 Condition: good 13:07 Discharge instructions given to patient, Instructed on discharge instructions, follow up and referral plans. medication usage, safety practices, Demonstrated understanding of instructions, follow-up care, medications, 13:17 Patient left the ED. jh5 Signatures: Mary Odell rg4 Molly Dias kj1 Marc Rowland DO DO ms3 Annmarie Gallagher, RN RN jh5 Idania Mason, RN RN kb3 Corrections: (The following items were deleted from the chart) 12:03 12:01 Home Meds: diclofenac Oral; kb3 kb3 12:03 12:01 Home Meds: spironolactone 50 mg Oral tab 1 tab once daily for ACNE; kb3 kb3
[2023-04-14 14:15] VITALS: BP 150/96; TEMP 99.5; O2SAT 100
== END 2023-04-14 13:17 | disposition home or self-care (01) ==
LOC: ER 11:12
DX: G62.9 Polyneuropathy, unspecified (principal)
CPT/HCPCS: 36415; 80048; 85025

== ENCOUNTER 2023-11-04 15:00 | Emergency (ER) | payer BC ==
--- OUTSIDE RECORDS SUMMARY | 2023-11-04 15:03 | XMS REPORT | Continuity of Care Document ---
Author Name Unknown Address [address] [facility] [place] [address] [facility] thconnect Address [address] [facility] [place] [address] Care Team Providers Care Residential Roofer Name Role Phone Pcp, Patient Does Not Have A Primary Care Physic eugene Alex Dhillon Attending Clinician Unavailable Campaigns, Generic Provider Attending Clinician Unavailable PINA JIMENEZ Attending Clinician Unavailab le ANABELA_GCBZW_Kadiyala_S Attending Clinician Unavaila Radha Hartmann DO Attending Clinician [phone] RADHA FOOTE Attending Clinician Unavailable Francis Attending Clinician Unavailab le Tamara JONES Attending Clinician Unavailable Tamara Lopez Attending Clinician [phone] PINA JIMENEZ Admitting Clinician Unavailab rashida PEÑALOZA_GCBZW_Kadiyala_S Admitting Clinician Unavaila joseph Blanco Admitting Clinician Unavailab le Payers Payer Name Policy Type Policy Number Effective Date Expirati on Date Source [place] [id number] 2023 00:00:00 Problems Condition Name Condition Details Condition Category Status Onset Date Resolution Date Last Treatment Date Treating Clinician Comments Source No known active problems No known active problems Disease [facility] Allergies, Adverse Reactions, Alerts Allergy Name Allergy Type Status Severity Reaction(s) Onset Date Inactive Date Treating Clinician Comments Source SULFAMET HOXAZOLE -TRIMETH OPRIM DRUG Active Unknown-Cmnt 10-16 00:00: 00 [facility] Sulfamet hoxazole -Trimeth oprim Propensi ty to adverse reaction s Active Unknown - See comments 10-16 00:00: 00 [facility] NO KNOWN ALLERGIE S Drug Class Active [facility] Social History Social Habit Start Date Stop Date Quantity Comments Source [facility]2 (event) 2022-10-06 00:00:00 2022-10-16 15:30:00 Not sure [facility] Sex Assigned At 1985 00:00:00 1985 00:00:00 [facility] Smoking Status Start Date Stop Date Source Tobacco smoking consumption unknown [facility] Medications Ordered Medication Name Filled Medication Name Start Date Stop Date Current Medication? Ordering Clinician Indication Dosage Frequency Signature (SIG) Comments Components Source methocarbam oL (ROBAXIN) tablet 1,000 mg 10-02 07:00: 00 10-02 06:59 :00 No 1000mg 1,000 mg, Oral, ONCE, 1 dose, On 10/03/23 at 0100, CECIL [facility] iopamidol (ISOVUE 370-500 mL) injection 65 mL 10-02 06:45: 00 10-02 06:45 :00 No [id number] 65mL 65 mL, Intravenou s, ONCE, 1 dose, On 10/03/23 at 0045, Routine [facility] aspirin tablet 325 mg 10-02 04:30: 00 10-02 04:28 :00 No 325mg 325 mg, Oral, ONCE, 1 dose, On Thu10/02/23 at 2230, STAT [facility] methocarbam oL 750 mg tablet 10-02 00:00: 00 Yes [id number] 750mg Take 1 tablet by mouth every 6 (six) hours as needed for Pain (scale 7-10). [facility] methocarbam oL (ROBAXIN) tablet 500 mg 02-10 05:45: 00 02-10 05:00 :00 No 500mg 500 mg, Oral, ONCE, 1 dose, On 02/10/22 at 0045, Routine [facility] ibuprofen (IBU) tablet 600 mg 02-10 04:45: 00 02-10 05:00 :00 No 600mg 600 mg, Oral, ONCE, 1 dose, On Thu02/09/22 at 2345, [facility] ibuprofen 600 mg tablet 02-10 00:00: 00 Yes [id number] 600mg Take 1 tablet by mouth every 6 (six) hours as needed for Pain (scale 4-6). [facility] methocarbam oL 500 mg tablet 02-10 00:00: 00 10-02 00:00 :00 No [id number] 500mg Take 1 tablet by mouth 4 (four) times daily. [facility] No known medications 02-09 23:39: 33 No No known medication s [facility] Vital Signs Vital Name Observation Time Observation Value Comments S ource Heart rate 2023-10-03 06:50:00 92 /min [facility] Respiratory rate 2023-10-03 06:50:00 12 /min [facility] Oxygen saturation in Arterial blood by Pulse oximetry 2023-10-03 06:50:00 98 /min [facility] Systolic blood pressure 2023-10-03 06:00:00 130 mm[Hg] [facility] Diastolic blood pressure 2023-10-03 06:00:00 73 mm[Hg] [facility] Body temperature 2023-10-03 06:00:00 37.17 Genna [facility] Body height 2023-10-03 03:42:00 165.1 cm [facility] Body weight 2023-10-03 03:42:00 58.968 kg [facility] BMI 2023-10-03 03:42:00 21.63 kg/m2 [facility] Systolic blood pressure 2022-10-16 20:31:00 146 mm[Hg] [facility] Diastolic blood pressure 2022-10-16 20:31:00 80 mm[Hg] [facility] Heart rate 2022-10-16 20:31:00 94 /min [facility] Body temperature 2022-10-16 20:31:00 37.22 Genna [facility] Respiratory rate 2022-10-16 20:31:00 16 /min [facility] Body height 2022-10-16 20:31:00 165.1 cm [facility] Body weight 2022-10-16 20:31:00 58.968 kg [facility] BMI 2022-10-16 20:31:00 21.63 kg/m2 [facility] Oxygen saturation in Arterial blood by Pulse oximetry 2022-10-16 20:31:00 100 /min [facility] Systolic blood pressure 2022-02-10 04:28:55 124 mm[Hg] [facility] Diastolic blood pressure 2022-02-10 04:28:55 94 mm[Hg] [facility] Heart rate 2022-02-10 04:28:55 72 /min [facility] Body temperature 2022-02-10 04:28:55 36.61 Genna [facility] Respiratory rate 2022-02-10 04:28:55 18 /min [facility] Oxygen saturation in Arterial blood by Pulse oximetry 2022-02-10 04:28:55 99 /min [facility] Body height 2022-02-10 04:26:00 165.1 cm [facility] Body weight 2022-02-10 04:26:00 58.968 kg [facility] BMI 2022-02-10 04:26:00 21.63 kg/m2 [facility] Procedures Procedure Date / Time Performed Performing Clinicia n Source CT CHEST PULMONARY ANGIOGRAM 2023-10-03 05:57:01 Pina Jimenez [facility] XR CHEST 1 VW 2023-10-03 04:57:46 [facility]+ [facility]W RIGHT 2023-10-03 04:22:06 Pina Jimenez [facility] TEST, SERUM 2023-10-03 04:00:00 Pina Jimenez [facility] TROPONIN I 2023-10-03 04:00:00 Pina Jimenez Un [facility] COMP. METABOLIC PANEL ([id number]) 2023-10-03 04:00:00 Pina Jimenez [facility] CBC WITH DIFF 2023-10-03 04:00:00 [facility] D-DIMER 2023-10-03 04:00:00 Pina Jimenez Un [facility] N-TERMINAL PRO-BNP 2023-10-03 04:00:00 Susna Jimenez [facility] NOTICE OF PRIVACY PRACTICES 2023-10-03 03:35:39 Doctor Unassigned, [place] [facility] CONSENT/REFUSAL FOR DIAGNOSIS AND TREATMENT 2023-10-03 03:35:16 Doctor Unassigned, [place] [facility] CONSENT/REFUSAL FOR DIAGNOSIS AND TREATMENT 2022-10-16 20:27:48 Doctor Unassigned, [place] [facility] NOTICE OF PRIVACY PRACTICES 2022-02-10 04:12:02 Doctor Unassigned, [place] [facility] Encounters Start Date/Time End Date/Time Encounter Type Admission Type Attending [facility] Care Facility Care Department Encounter ID Source 2022-09-25 13:39:00 [id number] 2021-08-21 12:20:42 [facility] [id number] [facility] 2021-08-21 12:18:57 [facility] [id number] [facility] 2021-08-21 12:18:35 Outpatient [facility] [id number] [facility] 2023-10-14 00:00:00 2023-10-14 00:00:00 Letter (Out) Campaigns, Generic Provider [facility] 1..840.114 350.1.13.10 4.2.7.2.686 [id number] [facility] 2023-10-02 21:45:00 2023-10-03 01:08:00 Emergency X PINA JIMENEZ [facility] ERT [id number] [facility] 2023-10-02 21:45:00 2023-10-03 01:08:00 Emergency Pina Jimenez [facility] 1..840.114 350.1.13.10 4.2.7.2.686 [id number] [facility] 2023-05-19 00:00:00 2023-05-19 00:00:00 Outpatient GC_GCBZW_Ka diyala_S PRIV PRIV [id number] [facility] 2023-05-19 00:00:00 2023-05-19 00:00:00 Outpatient GC_GCBZW_Ka diyala_S PRIV PRIV [id number] [facility] 2023-05-11 00:00:00 2023-05-11 00:00:00 Outpatient GC_GCBZW_Ka diyala_S PRIV PRIV [id number] [facility] 2023-05-11 00:00:00 2023-05-11 00:00:00 Outpatient GC_GCBZW_Ka diyala_S PRIV PRIV [id number] [facility] 2023-05-07 00:00:00 2023-05-07 00:00:00 Outpatient GC_GCBZW_Ka diyala_S PRIV PRIV [id number] [facility] 2022-10-16 15:33:00 2022-10-16 16:18:00 Emergency Radha Foote [facility] 1..840.114 350.1.13.10 4.2.7.2.686 [id number] [facility] 2022-10-16 15:33:00 2022-10-16 16:18:00 Emergency X RADHA FOOTE [facility] ERT [id number] [facility] 2022-08-05 00:00:00 2022-08-05 00:00:00 Outpatient RENEE_Torito_ Angela HALL AO [id number] [facility] 2022-02-09 23:57:00 2022-02-10 00:42:00 Emergency X Tamara JONES [facility] ERT [id number] [facility] 2022-02-09 23:57:00 2022-02-10 00:42:00 Emergency Tamara Jonesge [facility] 1.2.840.114 350.1.13.10 4.2.7.2.686 [id number] [facility] Results Test Description Test Time Test Comments Results Result Comments Source CT CHEST PULMONARY ANGIOGRAM 06:32:28 ORDERING PHYSICIAN: ?PINA ?ADERIИВАН HISTORY: Pulmonary embolism (PE) suspected, positive D-dimer COMPARISON: none TECHNIQUE: ?CT angiogram of the chest with IV contrast. Multiplanar 2Dreformatted images were obtained. This study was performed according toALARA principle for radiation dose reduction. Additional 3D volume renderedimages were obtained. FINDINGS: No focal infiltrates or areas of airspace consolidation are seen. There areno pleural effusions. Normal thorax. No suspicious endobronchial lesionsare seen in the central airways. The heart is normal in size. There is nopericardial effusion. No pathologically enlarged lymph nodes are seen inthe mediastinum or hanh. Aorta is normal in caliber. There is no evidenceof dissection. Pulmonary arteries are also normal in caliber. No fillingdefects are seen to suggest the presence of pulmonary emboli. Limitedvisualization of the upper abdominal structures shows no evidence of acuteabnormality. 4.3 cm hepatic mass with peripheral puddling during thearterial phase is partially included in the tciqj-ab-twvt in the righthepatic lobe. No suspicious focal osseous lesions are seen. [facility] XR SHOULDER 2+ VW RIGHT 05:12:31 ORDERING PHYSICIAN: ? PINA LOWE HISTORY: Shoulder pain COMPARISON: none FINDINGS:Internally and externally rotated views of the right shoulder demonstrateno fracture or dislocation. There are no degenerative changes of theacromioclavicular joint. The visualized portion of the right lung and ribsare normal. [facility] XR CHEST 1 VW 05:00:30 EXAM:XR CHEST 1 VW HISTORY: 38 years-old Female; Indication for study: CHEST PAIN COMPARISON: None TECHNIQUE: Frontal chest radiograph was obtained. FINDINGS: Lungs/Pleura: Adequate lung volume. ?The lungs are clear with no focalconsolidation. There is no pleural effusion or pneumothorax. Heart/Mediastinum: The cardiomediastinal silhouette is normal. ? Bones and soft tissues: No acute abnormality detected. [facility] [id number] 04:40:59* Test Item Value Reference Range Interpretation Comme nts NT-proBNP (test code = 41421-7) 223 pg/mL <=125 IVON (test code = IVON) Result Indeterminate-Consid er causes of NT-proBNP elevation other than Heart failure such as acute coronary syndrome, pulmonary embolism, pulmonary hypertension, sepsis, stroke, and renal dysfunction. Lab Interpretation (test code = 15840-8) Abnormal [facility][id number] 04:37:38* Test Item Value Reference Range Interpretation Comments D-DIMER (test code = 2821493129) 1.69 See_Comment H [Automated message] The system which generated this result transmitted reference range: <0.50 ?g/mL (FEU). The reference range was not used to interpret this result as normal/abnormal. IVON (test code = IVON) This test may be used in conjunction with a clinical pretest probability (PTP) assessment model to exclude venous thromboembolism (VTE) in patients suspected of deep venous thrombosis (DVT) and pulmonary embolism (PE) A D-Dimer value less than 0.50 ?g/ml (FEU) has a negative predicative value of 96 to 100% (95% CI)and 97 to 100% (95% CI) as an aid in the diagnosis of deep vein thrombosis (DVT) and pulmonary embolism when there is low or moderate pretest probability of PE or DVT. D-Dimer values are expressed in initial fibrinogen equivalent units (FEU)" The assay results should be used with other information, including the clinical context, in forming a diagnosis. Lab Interpretation (test code = 45513-9) Abnormal [facility], [id number] 04:34:16* Test Item Value Reference Range Interpretation Comme nts PREG SERUM (test code = 6274755606) Negative IVON (test code = IVON) Less than 10 IU/L. ?If low titer or ectopic is suspected, resubmit specimen in 48-72 hours. [facility]. METABOLIC PANEL ([id number])2023-10-03 04:32:00* Test Item Value Reference Range Interpretation Comme nts NA (test code = 8133094002) 131 mmol/L 135-145 L K (test code = 0898715209) 3.8 mmol/L 3.5-5.0 CL (test code = 6949561793) 100 mmol/L 98-108 CO2 TOTAL (test code = 0856938106) 24 mmol/L 23-31 AGAP (test code = 5562386465) 7 2-16 BUN (test code = 3323870725) 13 mg/dL 7-23 GLUCOSE (test code = 4157201379) 91 mg/dL 70-110 CREATININE (test code = 2160-0) 0.68 mg/dL 0.50-1.04 TOTAL BILI (test code = 0480356793) 0.7 mg/dL 0.1-1.1 CALCIUM (test code = 2254452129) 9.0 mg/dL 8.6-10.6 T PROTEIN (test code = 0649995272) 7.8 g/dL 6.3-8.2 ALBUMIN (test code = 8808571068) 4.2 g/dL 3.5-5.0 ALK PHOS (test code = 2894960426) 75 U/L 34-122 ALTv (test code = 1742-6) 10 U/L 5-35 AST(SGOT) (test code = 0690601512) 20 U/L 13-40 eGFR (test code = 90809-9) 115.9 mL/min/1.73m2 CKD-EPI eGFR (2020). Assuming creatinine has been stable day-to-day for at least three months, the eGFR indicates Category G1 (>= 90 mL/min/1.73 m2) Lab Interpretation (test code = 20065-7) Abnormal [facility] WITH [id number] 04:21:19* Test Item Value Reference Range Interpretation Comme nts WBC (test code = 6690-2) 9.16 4.30-11.10 RBC (test code = 789-8) 3.60 3.93-5.25 L HGB (test code = 718-7) 11.6 g/dL 11.6-15.0 HCT (test code = 4544-3) 32.6 % 35.7-45.2 L MCV (test code = 787-2) 90.6 fL 80.6-95.5 MCH (test code = 785-6) 32.2 pg 25.9-32.8 MCHC (test code = 786-4) 35.6 g/dL 31.6-35.1 H RDW-SD (test code = 33328-2) 39.6 fL 39.0-49.9 RDW-CV (test code = 788-0) 12.1 % 12.0-15.5 PLT (test code = 777-3) 558 166-358 H MPV (test code = 88570-1) 8.5 fL 9.5-12.9 L NRBC/100 WBC (test code = 4554906022) 0.0 0.0-10.0 NRBC x10^3 (test code = 1481949844) See_Comment [Automated messa ge] The system which generated this result transmitted reference range: 10*3/?L. The reference range was not used to interpret this result as normal/abnormal. GRAN MAT (NEUT) % (test code = 770-8) 61.8 % IMM GRAN % (test code = 9809204616) 0.40 % LYMPH % (test code = 736-9) 26.6 % MONO % (test code = 5905-5) 10.3 % EOS % (test code = 713-8) 0.4 % BASO % (test code = 706-2) 0.5 % GRAN MAT x10^3(ANC) (test code = 1143391362) 5.65 10*3/uL 1.88-7.09 IMM GRAN x10^3 (test code = 7375048709) 0.04 10*3/uL 0.00-0.06 LYMPH x10^3 (test code = 731-0) 2.44 10*3/uL 1.32-3.29 MONO x10^3 (test code = 742-7) 0.94 10*3/uL 0.33-0.92 H EOS x10^3 (test code = 711-2) 0.04 10*3/uL 0.03-0.39 BASO x10^3 (test code = 704-7) 0.05 10*3/uL 0.01-0.07 Lab Interpretation (test code = 99331-9) Abnormal [facility] Notes Date/Time Note Provider Source 2023-10-03 01:06:21 [id number] dzRg3c3Ng9lcO1aQ87u+[id number] -10-02T01:06:21 Pt given printed and verbal discharge instructions regarding chest pain, acute pain of right shoulder, elevated d-dimer, liver mass, and sprain of other part of right shoulder regionPrescriptions provided: RobaxinPt verbalized understanding of instructions, pt awake alert oriented, resp reg unlabored, skin w/d, color appropriate for race, moves all ext well,pt encouraged to follow up with pcpAdvised to seek medical attention for new/prolonged/worsening of symptomsNo adverse reaction to meds given in ER noted upon dischargePIV d'cd, dressing to site, catheter in tact.Awake, alert oriented, resp reg unlabored, skin w/d, pt leaving amb with steady gait, in no apparent distress 71201-6Jjmgwcqla department OchnFI7625-87-29Y95:07:42Emergency department NoteTXT1.2.840.704075.1.13.104.2.7 .2.413600|[id number] for patient qpxe08208-3TlbiBTUMFMLSXMROljtuasy d C-CDA narrative [id number] A Cole RN[id number] 85WUVTMZLTOBCSICISYXRTCP2827-78-86 T01:07:421.2.840.476493.1.72.3.15| 1.2.840.223077.1.13.104.2.7.2.7278 [id number] Rhona Benavidez Cole RN [facility] 2023-10-02 21:40:13 cQk+vyy3f4oQNNxfvDxn LXCA93/bPGa6kr 7PyfqFZIawkw4FJKMifeusKdG2tC/O2T21:40:13 CC: Pt reports having a lot of back issues/muscle tightness x over the last 2 weeks. Pt states the last 2 days she has right shoulder and right upper chest wall pain. Pt states she can't put on sports bra due to muscle tightness. Chest wall tenderness is better with pressure, increases when she leans forward. No known injuryPMHx: herniated disk in her neckAwake, alert, oriented, resp reg unlabored, skin warm, color appropriate for race, moves all ext without difficulty, amb with steady gait 89157-8Tipuzmvqr department Triage kqstTC4634-98-79C92:43:53[facility] Triage noteTXT1.2.840.344306.1.13.104.2.7 .2.344528|[id number] for patient lfke88910-9Inkexegbg department NoteLNNARRATIVEFormatted C-CDA narrative [id number] R Shehadeh RNUT[id number] 93GQMDMZBVXEFAMEBSCHKEUN0950-49-46 T21:43:531.2.840.179720.1.72.3.15| 1.2.840.705312.1.13.104.2.7.2.7278 [id number] Kelli Avendaño RN [facility]
--- NOTE | 2023-11-04 16:03 | RAD REPORT ---
EXAM DESCRIPTION: CT - Facial Bones W/ Mpr - 11/04/2023 3:42 pm CLINICAL HISTORY: Facial pain left TMJ pain COMPARISON: 2014 TECHNIQUE: Computed axial tomography of the face was obtained. Coronal and sagittal reconstruction w as performed. All CT scans are performed using dose optimization technique as appropriate and may include automated exposure control or mA/KV adjustment according to patient size. FINDINGS: A fracture is not seen. 8 millimeter chronic calcification anterior-inferior aspect of the nose A TMJ dislocation is not noted. No significant TMJ abnormality visualized The globes are intact. Fluid within the sinuses is not seen. IMPRESSION: No acute abnormality displayed
--- NOTE | 2023-11-04 16:21 | ER ---
Nurse's Notes [facility] Name: Yamilet Bustos Age: 38 yrs Sex: Female : 1985 Arrival Date: 11/04/2023 Time: 15:00 Bed DX5 Private MD: Uday Navarrete Diagnosis: Temporomandibular Joint Dysfunction Presentation: 11/03 15:21 Chief complaint: Patient states: Left jaw pain since yesterday, pain with moving and nj1 talking. Hx of musculoskeletal disease. No known injuries/trauma. Coronavirus screen: Vaccine status: Patient reports being unvaccinated. Ebola Screen: Patient denies travel to an Ebola-affected area in the 21 days before illness onset. Initial Sepsis Screen: Does the patient meet any 2 criteria? No. Patient's initial sepsis screen is negative. Does the patient have a suspected source of infection? No. Patient's initial sepsis screen is negative. Risk Assessment: Do you want to hurt yourself or someone else? Patient reports no desire to harm self or others. Onset of symptoms was November 03, 2023. 15:21 Method Of Arrival: Ambulatory [facility] 15:21 Acuity: BRYCE 4 nj1 Triage Assessment: 15:25 General: Appears in no apparent distress. comfortable, Behavior is calm, cooperative, nj1 appropriate for age. Pain: Complains of pain in left jaw Pain currently is 5 out of 10 on a pain scale. 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 - Infectious Disease History:: Denies. - Social history:: Smoking status: Patient denies any tobacco usage or history of. Screenin:29 [facility] ED Fall Risk Assessment (Adult) History of falling in the last 3 months, ll1 including since admission No falls in past 3 months (0 pts) Confusion or Disorientation No (0 pts) Intoxicated or Sedated No (0 pts) Impaired Gait No (0 pts) Mobility Assist Device Used No (0 pt) Altered Elimination No (0 pt) Score/Fall Risk Level 0 - 2 = Low Risk Maintained a safe environment, Hourly rounding (assess needs \T\ fall precautionary measures) done. Abuse screen: Denies threats or abuse. Nutritional screening: No deficits noted. Tuberculosis screening: No symptoms or risk factors identified. Assessment: 16:28 General: Appears in no apparent distress. Behavior is calm, cooperative, appropriate ll1 for age. EENT: Reports pain in left jaw. Vital Signs: 15:21 Pulse 89; Resp 16; Temp 98.2(TE); Pulse Ox 100% on R/A; Weight 61.23 kg; Height 5 ft. 5 nj1 in. ; Pain 5/10; 16:30 BP 121 / 71; Pulse 81; Resp 16; Pulse Ox 100% ; ll1 15:21 Body Mass Index 22.46 (61.23 kg, 165.1 cm) mn1 15:21 Pain Scale: Adult [facility] ED Course: 15:02 Patient arrived in ED. mr 15:02 Uday Navarrete is Private Physician. mr 15:02 Luis Pereyra MD is Attending Physician. ec2 15:23 Triage completed. mn1 15:25 Arm band placed on left wrist. mn1 15:42 Facial Bones W/O Con CT In Process Unspecified. EDMS 16:29 Patient has correct armband on for positive identification. Bed in low position. Call ll1 light in reach. Provided Education on: n/a. 16:29 No provider procedures requiring assistance completed. Patient did not have IV access ll1 during this emergency room visit. Administered Medications: No medications were administered Medication: 16:30 VIS not applicable for this client. 1 Outcome: 16:21 Discharge ordered by . ec2 16:29 Discharged to home ambulatory, 1 16:29 Condition: stable 16:29 Discharge instructions given to patient, Instructed on discharge instructions, follow up and referral plans. Demonstrated understanding of instructions, follow-up care, 16:30 Patient left the ED. 1 Signatures: Dispatcher [employer] EDCA Mya Payne, Reg Reg Obinna Miranda RN RN 1 Marlee Cormier RN RN nj1 Luis Pereyra MD MD ec2 Corrections: (The following items were deleted from the chart) 15:25 15:23 Immunization history: Client reports receiving the 2nd dose of the Covid vaccine, [place] [id number]
--- NOTE | 2023-11-04 16:21 | EDPHYS ---
Physician Documentation [facility] Name: Yamilet Bustos Age: 38 yrs Sex: Female : 1985 Arrival Date: 11/04/2023 Time: 15:00 Bed DX5 Private MD: Uday Navarrete ED Physician Luis Pereyra HPI: 11/03 15:23 This 38 yrs old Female presents to ER via Ambulatory with complaints of Jaw ec2 Pain. 15:23 Patient arrives today for evaluation of left jaw pain. Patient reports that she has ec2 been experiencing left jaw pain since yesterday. Patient reports the pain is worse with opening and closing the mouth. Patient reports no recent injuries or trauma. Patient reports no issues with previous TMJ symptoms.. 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 - Infectious Disease History:: Denies. - Social history:: Smoking status: Patient denies any tobacco usage or history of. ROS: 15:24 Constitutional: as per hpi ec2 Exam: 15:24 Constitutional: GEN: NAD Head: atraumatic Eyes: EOMI Ears: External ears are normal. ec2 Mouth: Left TMJ with TTP, no deformities, no crepitus, no malocclusion appreciated. CV: regular rate LUNGS: no respiratory distress ABD: non-distended SKIN: no evidence of rashes MSK: no evidence of trauma NEURO: moves all extremities equally Vital Signs: 15:21 Pulse 89; Resp 16; Temp 98.2(TE); Pulse Ox 100% on R/A; Weight 61.23 kg; Height 5 ft. 5 nj1 in. ; Pain 5/10; 16:30 BP 121 / 71; Pulse 81; Resp 16; Pulse Ox 100% ; ll1 15:21 Body Mass Index 22.46 (61.23 kg, 165.1 cm) nj1 15:21 Pain Scale: Adult nj1 MDM: 15:24 Data reviewed: vital signs. ED course: Patient arrives today for evaluation of left jaw ec2 pain. Examination remarkable for well-appearing nontoxic dividual with HEENT findings as noted above. Will obtain radiograph of the left mandible, doubt fracture given lack of injury, doubt dislocation given no malocclusion and normal mouth opening. Suspect TMJ syndrome. . 15:33 Patient medically screened. ec2 16:21 ED course: CT imaging negative. Will discharge home. Return precautions given.. ec2 11/03 15:33 Order name: Facial Bones W/O Con CT; Complete Time: 16:03 ec2 Administered Medications: No medications were administered Disposition Summary: 11/04/23 16:21 Discharge Ordered Notes: Location: Home ec2 Condition: Stable ec2 Diagnosis - Temporomandibular Joint Dysfunction ec2 Followup: ec2 - With: Private Physician - When: - Reason: Re-evaluation by your physician Discharge Instructions: - Discharge Summary Sheet ec2 - Temporomandibular Joint Syndrome ec2 Forms: - Medication Reconciliation Form ec2 - Thank You Letter ec2 - Antibiotic Education ec2 - Prescription Opioid Use ec2 - Patient Portal Instructions ec2 - Leadership Thank You Letter ec2 Signatures: Dispatcher [employer] EDMarlee Mcpherson, ABEL RN nj1 Luis Pereyra MD MD ec2 Corrections: (The following items were deleted from the chart) 15:24 15:24 Mandible <4 Views+[email or web address].RAD.BRZ ordered. EDMS EDMS 15:25 15:23 Immunization history: Client reports receiving the 2nd dose of the Covid vaccine, nj1 nj1 15:33 15:33 Facial Bones W/ MPR+CT.RAD.BRZ ordered. EDMS EDMS
[2023-11-04 17:47] VITALS: BP 121/71; TEMP 98.2; O2SAT 100
== END 2023-11-04 16:30 | disposition home or self-care (01) ==
LOC: ER 15:00
DX: M26.602 Left temporomandibular joint disorder, unspecified (principal); Z88.1 Allergy status to other antibiotic agents
CPT/HCPCS: 70486; 76377